=== PATIENT | female | born 1985 | race Hispanic/Latino ===

== ENCOUNTER → 2023-09-03 | Outpatient (CLI) | payer BC ==
[~2023-09-03] MED LIST: IOHEXOL 350 MG/ML 100ML INFUS..BTL IV ONE; METOPROLOL TARTRATE 1 MG/ML 5ML VIAL IV ONE
== END | disposition home or self-care (01) ==
LOC: RAH 08:44
PROVIDERS: ATTEND Internal Medicine
DX: R07.9 Chest pain, unspecified (principal)
CPT/HCPCS: 75574; Q9967; J3490